=== PATIENT | male | born 1955 | race Asian ===

== ENCOUNTER 2021-05-19 15:06 | Emergency (ER) | payer MEDICARE, MEDICAID ==
[~2021-05-19] VITALS: Ht 162.6 cm; Wt 65.9 kg
[~2021-05-19 15:06] MED LIST: GLIPIZIDE; LISINOPRIL; METFORMIN
[2021-05-19 15:11] VITALS: BP 119/71
[2021-05-19] MEDS ORDERED: RISP0.5T39 PO (16:04)
[2021-05-19] MEDS ORDERED: ATOR10TA84 PO (16:04)
[2021-05-19] MEDS ORDERED: BENZ0.5T44 PO (16:04)
[2021-05-20 15:18] LABS: GLUCOSE,POINT OF CARE 142 MG/DL (70-110)
== END 2021-05-19 17:10 | disposition left against medical advice (07) ==
LOC: EMS 15:06
DX: R21 Rash and other nonspecific skin eruption (principal); Z53.21 Procedure and treatment not carried out due to patient leaving prior to being seen by health care provider
CPT/HCPCS: 82962

== ENCOUNTER 2021-05-20 09:08 | Emergency (ER) | payer MEDICARE, MEDICAID ==
[~2021-05-20] VITALS: Ht 162.6 cm; Wt 70.0 kg
[~2021-05-20 09:08] MED LIST changes: +ATOR10TA84 PO; +BENZ0.5T44 PO; +RISP0.5T39 PO
[2021-05-20 09:31] VITALS: BP 126/78
[2021-05-20] MEDS ORDERED: PredniSONE 20 MG TABLET PO ONE (09:45)
== END 2021-05-20 09:51 | disposition home or self-care (01) ==
LOC: EMS 09:08
DX: L23.9 Allergic contact dermatitis, unspecified cause (principal); F32.9 Major depressive disorder, single episode, unspecified; E11.9 Type 2 diabetes mellitus without complications; I10 Essential (primary) hypertension
CPT/HCPCS: 99283; J7512